=== PATIENT | female | born 1930 | race Caucasian/White ===

== ENCOUNTER 2017-12-16 06:16 | Day surgery (SDC) | payer MEDICARE ==
[2017-12-10 10:13] VITALS: BMI 29.8
[~2017-12-16 06:16] MED LIST: LACTATED RINGERS 1,000 ML IV SCH
[2017-12-16] MEDS ORDERED: SODIUM CHLORIDE 0.9% 1,000 ML IV SCH (06:20)
[2017-12-16 06:49] VITALS: TEMP 99
[2017-12-16 07:14] LABS: Glucose,Whole Blood 89 mg/dL (75-99)
[2017-12-16] MEDS ORDERED: SODIUM CHLORIDE 0.9% 500 ML IV ONE (07:26)
[2017-12-16] MEDS ORDERED: ePHEDrine SULFATE/0.9% NACL/PF 50 MG/5 ML SYRINGE IV ONE (07:31)
[2017-12-16] MEDS ORDERED: PROPOFOL 10 MG/ML 20 ML VIAL IV ONE (07:31)
--- NOTE | 2017-12-16 08:28 | CE ---
CARDIAC ELECTROPHYSIOLOGY REPORT DATE OF SERVICE: 12/16/2017 PROCEDURE: Electrical cardioversion. PERFORMED BY: Dr. Duke Enamorado. INDICATION: Persistent atrial fibrillation. CLINICAL INFORMATION: Mrs. Priscilla Hickey is an 87-year-old lady with hypertension, type 2 diabetes with recent onset but persistent atrial fibrillation who has been adequately anticoagulated. Her rate control was fairly optimal. She was brought in for the procedure electively after explaining the risks, benefits, and options. PROCEDURE NOTE: Under the influence of [id number] intravenous anesthetic agent with the attendance of the anesthesiologist, a single 200 joule synchronized shock was delivered with anterior and posterior patches. Patient converted to sinus rhythm, remained hemodynamically stable and neurologically intact. She will be discharged later on today after she is up and about and has had a meal. This was a successful electrical cardioversion. Results were discussed with the patient and her son. JAYY / MAN: [id number] /
[2017-12-16 10:59] VITALS: PULSE 64; RESP 20
[2017-12-16 11:02] VITALS: BP 123/58
== END 2017-12-16 10:53 | disposition home or self-care (01) ==
LOC: CATHCVL 06:16
PROVIDERS: ATTEND Internal Medicine Interventional Cardiology
DX: I48.1 Persistent atrial fibrillation (principal); I10 Essential (primary) hypertension; E11.9 Type 2 diabetes mellitus without complications; Z79.4 Long term (current) use of insulin; M19.90 Unspecified osteoarthritis, unspecified site; Z79.01 Long term (current) use of anticoagulants; Z79.899 Other long term (current) drug therapy; Z88.1 Allergy status to other antibiotic agents; Z88.3 Allergy status to other anti-infective agents
CPT/HCPCS: 92960; J2704

== ENCOUNTER 2017-12-19 13:32 | Inpatient (IN) | payer MEDICARE ==
[2017-12-19] MEDS ORDERED: SODIUM CHLORIDE 0.9% 1,000 ML IV STA ×2 (13:53)
[2017-12-19] MEDS ORDERED: KETOROLAC 30 MG/ML 1 ML VIAL IVP STA (13:53)
[2017-12-19] MEDS ORDERED: ACETAMINOPHEN IV (For NPO) 1,000 MG in EMPTY BAG 1 BAG IVPB STA (13:53)
[2017-12-19 14:12] LABS: Basophils % (A) 0 %; Eosinophils # (A) 0.1 k/uL (0-0.7); Eosinophils % (A) 1 %; HCT 41.9 % (34.0-46.0); Lymphocytes # (A) 1.6 k/uL (1.0-4.8); Lymphocytes % (A) 12 %; MCHC 33.4 g/dL (31.0-37.0); MCV 89.9 fL (80.0-100.0); Monocytes # (A) 0.6 k/uL (0-1.0); Monocytes % (A) 4 %; Neutrophils # (A) 10.7 k/uL (1.3-7.7); Neutrophils % (A) 82 %; Platelet Count 211 k/uL (150-450); RBC 4.66 m/uL (3.80-5.40); RDW 13.6 % (11.5-15.5); WBC 13.1 k/uL (3.8-10.6)
[2017-12-19 14:21] LABS: ALT 36 U/L (9-52); AST 31 U/L (14-36); Albumin 3.4 g/dL (3.5-5.0); Alkaline Phosphatase 79 U/L (38-126); Anion Gap 12 mmol/L; Blood Urea Nitrogen 17 mg/dL (7-17); Calcium 9.1 mg/dL (8.4-10.2); Carbon Dioxide 24 mmol/L (22-30); Chloride 104 mmol/L (98-107); Glucose 105 mg/dL (74-99); Lipase 32 U/L (23-300); Magnesium 1.9 mg/dL (1.6-2.3); Potassium 4.4 mmol/L (3.5-5.1); Sodium 140 mmol/L (137-145); Total Bilirubin 1.3 mg/dL (0.2-1.3); Total Protein 6.3 g/dL (6.3-8.2)
[2017-12-19 14:24] LABS: Partial Thromboplastin Time 23.3 sec (22.0-30.0); Prothrombin Time 10.2 sec (9.0-12.0)
--- NOTE | 2017-12-19 14:27 | ED ---
Chest Pain HPI - General Chief Complaint: Chest Pain Stated Complaint: revisit Time Seen by Provider: 12/19/17 13:52 Source: patient, RN notes reviewed, old records reviewed Mode of arrival: wheelchair Limitations: no limitations - History of Present Illness Initial Comments: This is an 87-year-old female the ER for evaluation. Patient having multiple complaints currently. Complains of chest pain occasional shortness of breath and generalized not feeling well. Patient states she feels weak tired fatigued , dehydrated. - Related Data Home Medications Medication Instructions Recorded Confirmed Carteolol HCl [Carteolol HCl 1% 1 drop BOTH EYES BID 10/20/15 12/10/17 Ophth] Cholecalciferol [Vitamin D3] 1,000 unit PO DAILY 10/20/15 12/10/17 Insulin Glargine [Lantus] 38 unit SQ DAILY 10/20/15 12/16/17 Latanoprost Ophth [Xalatan 0.005%] 1 drop LEFT EYE HS 10/20/15 12/10/17 Lisinopril [Zestril] 20 mg PO DAILY 10/20/15 12/10/17 Sodium Chloride 5% Ophth Soln 1 drops BOTH EYES DAILY 10/20/15 12/10/17 [Arsenio 128] Apixaban [Eliquis] 2.5 mg PO BID 12/10/17 12/10/17 Furosemide [Lasix] 40 mg PO DAILY PRN 12/10/17 12/16/17 Metoprolol Tartrate 50 mg PO BID 12/10/17 12/10/17 Vision Shield 1 tab PO DAILY 12/10/17 12/10/17 prednisoLONE ACETATE 1% OPHTH 1 drops RIGHT EYE QAM 12/10/17 12/10/17 [Pred Forte 1%] Allergies Allergy/AdvReac Type Severity Reaction Status Date / Time ciprofloxacin Allergy Rash/Hives Verified 12/19/17 13:37 Sulfa (Sulfonamide Allergy Rash/Hives Verified 12/19/17 13:37 Antibiotics) Review of Systems ROS Statement: Those systems with pertinent positive or pertinent negative responses have been documented in the HPI. ROS Other: All systems not noted in ROS Statement are negative. EKG Findings - EKG Comments: EKG Findings:: EKG shows normal sinus rhythm rate of 60, RI 128, QRS 106, QTc 465 Past Medical History Past Medical History: Atrial Fibrillation, Diabetes Mellitus, Hypertension Additional Past Medical History / Comment(s): Fluid retention, diarrhea, hx kidney stones, History of Any Multi-Drug Resistant Organisms: None Reported Past Surgical History: Appendectomy, Cholecystectomy Additional Past Surgical History / Comment(s): Removal of stone from Kidney Past Anesthesia/Blood Transfusion Reactions: No Reported Reaction Past Psychological History: No Psychological Hx Reported Smoking Status: Never smoker Past Alcohol Use History: None Reported Past Drug Use History: None Reported - Past Family History Sister(s) Family Medical History: Cancer Brother(s) Family Medical History: Cancer General Exam Limitations: no limitations General appearance: alert, in no apparent distress Head exam: Present: atraumatic, normocephalic, normal inspection Eye exam: Present: normal appearance, PERRL, EOMI. Absent: scleral icterus, conjunctival injection, periorbital swelling ENT exam: Present: normal exam, mucous membranes moist Neck exam: Present: normal inspection. Absent: tenderness, meningismus, lymphadenopathy Respiratory exam: Present: normal lung sounds bilaterally. Absent: respiratory distress, wheezes, rales, rhonchi, stridor Cardiovascular Exam: Present: regular rate, normal rhythm, normal heart sounds. Absent: systolic murmur, diastolic murmur, rubs, gallop, clicks GI/Abdominal exam: Present: soft, normal bowel sounds. Absent: distended, tenderness, guarding, rebound, rigid Extremities exam: Present: normal inspection, full ROM, normal capillary refill. Absent: tenderness, pedal edema, joint swelling, calf tenderness Back exam: Present: normal inspection Neurological exam: Present: alert, oriented X3, CN II-XII intact Psychiatric exam: Present: normal affect, normal mood Skin exam: Present: warm, dry, intact, normal color. Absent: rash Course Vital Signs 12/19/17 12/19/17 12/19/17 13:34 13:49 14:20 Temperature 100.1 F H 101.2 F H Pulse Rate 67 66 68 Pulse Rate [ 66 Apical] Respiratory 18 18 18 Rate Blood Pressure 180/71 174/77 139/62 O2 Sat by Pulse 96 98 99 Oximetry 12/19/17 14:44 Temperature 97.8 F Pulse Rate Pulse Rate [ Apical] Respiratory Rate Blood Pressure O2 Sat by Pulse Oximetry Disposition Clinical Impression: UTI (urinary tract infection), Fever, Weak Disposition: ADMITTED IP TO THIS HOSP Condition: Good Is patient prescribed a controlled substance at d/c from ED?: No Referrals: Luis Angel Mcknight DO [Primary Care Provider] - 1-2 days
[2017-12-19 14:31] LABS: Creatine Kinase 31 U/L (30-135)
--- NOTE | 2017-12-19 14:39 | XR ---
EXAMINATION TYPE: XR chest 2V DATE OF EXAM: 12/19/2017 COMPARISON: NONE HISTORY: Shortness of breath TECHNIQUE: Frontal and lateral views of the chest are obtained. FINDINGS: Scattered senescent parenchymal changes noted. Hyperinflation compatible with COPD. No evidence for infiltrate. No evidence for atelectasis. Heart size is stable. Mediastinal structures are stable and grossly unremarkable. No evidence for hilar prominence. Degenerative changes dorsal spine. IMPRESSION: 1. No evidence for acute pulmonary disease.
[2017-12-19 14:44] LABS: Creatine Kinase MB 0.4 ng/mL (0.0-2.4); Troponin I <0.012 ng/mL (0.000-0.034)
[2017-12-19 14:51] LABS: Appearance,Urine Cloudy (Clear); Bacteria,Urine Rare /hpf; Bilirubin,Urine Negative (Negative); Blood,Urine Trace (Negative); Color,Urine Yellow; Glucose,Urine (UA) Negative (Negative); Ketones,Urine Negative (Negative); Leukocyte Esterase,Urine Large (Negative); Mucus,Urine Few /hpf; Nitrite,Urine Negative (Negative); Protein,Urine Trace (Negative); RBC,Urine 18 /hpf (0-5); Specific Gravity,Urine 1.019 (1.001-1.035); Squamous Epithelial Cell,Urine 7 /hpf (0-4); WBC,Urine >182 /hpf (0-5)
[2017-12-19] MEDS ORDERED: cefTRIAXone 2,000 MG in SODIUM CHLORIDE 0.9% 100 ML IVPB STA (15:00)
[2017-12-19] MEDS ORDERED: IBUPROFEN 400 MG TAB PO PRN (15:01)
[2017-12-19] MEDS ORDERED: ACETAMINOPHEN TAB 325 MG TAB PO PRN (15:01)
[2017-12-19] MEDS ORDERED: cefTRIAXone IN SWFI 2,000 MG/20 ML SYRINGE IVP STA (15:07)
[2017-12-19 16:13] VITALS: BMI 29.0
[2017-12-19 17:19] LABS: Glucose,Whole Blood 71 mg/dL (75-99)
[2017-12-19] MEDS ORDERED: FUROSEMIDE 40 MG TAB PO PRN (17:22)
[2017-12-19] MEDS: INSULIN ASPART 100 UNIT/ML 1 ML 10 ML VIAL SQ SCH ×2 (17:59→20:49)
[2017-12-19] MEDS: CARTEOLOL 1% BOTH EYES SCH (20:29)
[2017-12-19] MEDS: LATANOPROST 0.005% OPHTH DROPS 2.5 ML BTL LEFT EYE SCH (20:31)
[2017-12-19] MEDS: APIXABAN 2.5 MG TABLET PO SCH (20:34)
[2017-12-19 21:08] LABS: Glucose,Whole Blood 190 mg/dL (75-99)
[2017-12-19] MEDS: METOPROLOL TARTRATE 50 MG TAB PO SCH (22:58)
[2017-12-19 23:49] LABS: Hemoglobin A1C 7.2 % (4.0-6.0)
[2017-12-20] MEDS ORDERED: DEXTROSE 50%-WATER 50 ML SYRINGE IVP ONE (07:15)
[2017-12-20 08:04] LABS: Glucose,Whole Blood 82 mg/dL (75-99)
[2017-12-20 08:04] LABS: Glucose,Whole Blood 61 mg/dL (75-99)
[2017-12-20] MEDS: CARTEOLOL 1% BOTH EYES SCH ×2 (08:15→22:12)
[2017-12-20] MEDS: prednisoLONE ACETATE 1% OPHTH DROPS 5 ML BTL RIGHT EYE SCH (08:15)
[2017-12-20] MEDS: cefTRIAXone IN SWFI 1,000 MG/10 ML SYRINGE IVP SCH (08:51)
[2017-12-20] MEDS: APIXABAN 2.5 MG TABLET PO SCH ×2 (08:51→22:13)
[2017-12-20] MEDS: METOPROLOL TARTRATE 50 MG TAB PO SCH ×2 (08:51→22:13)
[2017-12-20] MEDS: LISINOPRIL 20 MG TAB PO SCH (08:51)
[2017-12-20] MEDS: INSULIN ASPART 100 UNIT/ML 1 ML 10 ML VIAL SQ SCH ×4 (08:52→22:18)
[2017-12-20] MEDS ORDERED: INSULIN DETEMIR 100 UNIT/ML 10 ML VIAL SQ SCH ×2 (09:00→11:12)
[2017-12-20] MEDS ORDERED: CHOLECALCIFEROL 1,000 UNIT TAB PO SCH (09:00)
[2017-12-20 10:40] LABS: Glucose,Whole Blood 148 mg/dL (75-99)
[2017-12-20 12:18] LABS: Glucose,Whole Blood 118 mg/dL (75-99)
[2017-12-20] MEDS: LACTATED RINGERS 1,000 ML IV SCH (13:00)
--- NOTE | 2017-12-20 14:10 | HP ---
HISTORY AND PHYSICAL DATE OF ADMISSION: 12/19/17. DATE OF SERVICE: 12/20/17. PRESENTING COMPLAINT: Weak, tired, nausea. HISTORY OF PRESENTING COMPLAINT: This very pleasant 87-year-old patient of Dr. Mcknight. Chronic stable medical conditions include diabetes, hypertension, atrial fibrillation. The latter of which that had a cardioversion done by Dr. Brody Enamorado. The patient presented 1 day of not feeling well. Nausea, fever, chills, some urinary frequency, decreased appetite, tired, run down. The patient was found to have a fever of 101 in the ER with white count and a sepsis picture and the patient is admitted, started on IV fluids and IV antibiotics for what appeared to be a UTI, felt to be the source of infection. The patient is still feeling tired, run down. Not much of an appetite, nausea. REVIEW OF SYSTEMS: CONSTITUTIONAL: Fever, chills. HEENT: Decreased hearing. RESPIRATORY: None. CARDIOVASCULAR: None. GASTROINTESTINAL: As above. GENITOURINARY: As above. MUSCULOSKELETAL: Arthritic pain in the joints. DERMATOLOGICAL, HEMATOLOGIC, LYMPHATIC: None. PSYCHIATRY: None. NEUROLOGICAL: None. PAST MEDICAL HISTORY: Atrial fibrillation with cardioversion, diabetes, hypertension, osteoarthritis, urine incontinence. PAST SURGICAL HISTORY: Appendectomy, cholecystectomy, removal of stone from kidney. SOCIAL HISTORY: No smoking, no alcohol. Lives with her son. Uses a walker. FAMILY HISTORY: Cancer, type unknown. HOME MEDICATIONS: Prednisone Forte 1% one drop to right eye daily, Vision Shield, sodium chloride 5% 1 drop to both eyes daily, metoprolol 50 mg p.o. b.i.d., Zestril 20 mg p.o. daily, Xalatan 0.005% 1 drop to left eye q.h.s., Lantus 38 units subcu daily, Lasix 40 mg p.o. daily p.r.n., Vitamin D3 1000 units p.o. daily. Carteolol 1% 1 drop to both eyes b.i.d., Eliquis 2.5 p.o. b.i.d. ALLERGIES: To CIPRO AND SULFUR. PHYSICAL EXAMINATION: VITAL SIGNS ON PRESENTATION: Temperature 101.2, pulse 60, respiratory 18, blood pressure 130/67, pulse ox 98% on 2 L. GENERAL APPEARANCE: Sitting up, tired-appearing. EYES: Pupils equal. Conjunctivae normal. HEENT: External appearance of nose and ears normal. Oral cavity normal. NECK: JVD not raised. Mass not palpable. RESPIRATORY: Effort normal. Lungs fair entry. CARDIOVASCULAR: First and second sounds, no edema. ABDOMEN: Soft, nontender. Liver and spleen not palpable. LYMPHATIC: No lymph node palpable in neck or axillae. PSYCHIATRY: Alert and oriented x3. Mood and affect normal. NEUROLOGICAL: Pupils equal. Cranial nerves grossly intact. Power and sensation grossly intact. MUSCULOSKELETAL: Evidence of osteoarthritis especially the hands and knees. INVESTIGATION: White count 13.1, potassium 4.4. UA positive for leukocyte esterase, WBC. Urine culture is pending. ASSESSMENT: 1. Acute urinary tract infection causing sepsis, present on admission. 2. Paroxysmal atrial fibrillation, recent cardioversion for which patient is on Eliquis. 3. Essential hypertension. 4. Diabetes mellitus type 2, chronically on insulin, uncontrolled with hypoglycemia. Sugar did drop down to 71. PLAN: Patient is put on IV ceftriaxone, IV fluids. Patient's sugars are running low, dose of Levemir has been cut back. Other home medications are to be resumed. Care was discussed with the patient. Questions were answered. MMODL / IJN: [id number] /
[2017-12-20 17:09] LABS: Glucose,Whole Blood 102 mg/dL (75-99)
[2017-12-20] MEDS ORDERED: ONDANSETRON 4 MG/2 ML VIAL IVP PRN (17:12)
[2017-12-20] MEDS: SODIUM CHLORIDE 5% OPHTH DROPS 15 ML BTL BOTH EYES SCH (17:16)
[2017-12-20 20:55] LABS: Glucose,Whole Blood 209 mg/dL (75-99)
[2017-12-20 22:11] VITALS: RESP 18
[2017-12-20] MEDS: LATANOPROST 0.005% OPHTH DROPS 2.5 ML BTL LEFT EYE SCH (22:13)
[2017-12-21 02:08] LABS: Glucose,Whole Blood 143 mg/dL (75-99)
[2017-12-21] MEDS: LACTATED RINGERS 1,000 ML IV SCH (06:02)
[2017-12-21 06:20] VITALS: BP 149/63; PULSE 61; TEMP 98.5
[2017-12-21 07:14] LABS: Glucose,Whole Blood 138 mg/dL (75-99)
[2017-12-21] MEDS: prednisoLONE ACETATE 1% OPHTH DROPS 5 ML BTL RIGHT EYE SCH (09:22)
[2017-12-21] MEDS: cefTRIAXone IN SWFI 1,000 MG/10 ML SYRINGE IVP SCH (09:22)
[2017-12-21] MEDS: APIXABAN 2.5 MG TABLET PO SCH (09:22)
[2017-12-21] MEDS: CARTEOLOL 1% BOTH EYES SCH (09:22)
[2017-12-21] MEDS: METOPROLOL TARTRATE 50 MG TAB PO SCH (09:22)
[2017-12-21] MEDS: SODIUM CHLORIDE 5% OPHTH DROPS 15 ML BTL BOTH EYES SCH (09:22)
[2017-12-21] MEDS: INSULIN ASPART 100 UNIT/ML 1 ML 10 ML VIAL SQ SCH ×2 (09:23→13:25)
[2017-12-21] MEDS: LISINOPRIL 20 MG TAB PO SCH (09:23)
[2017-12-21 11:39] LABS: Glucose,Whole Blood 203 mg/dL (75-99)
--- NOTE | 2017-12-21 19:38 | DS ---
DISCHARGE SUMMARY DATE OF ADMISSION: December 19, 2017. DATE OF DISCHARGE: December 21, 2017. FINAL DIAGNOSES: 1. Acute urinary tract infection causing sepsis present on admission. 2. Paroxysmal atrial fibrillation with recent cardioversion for which patient is on Eliquis. 3. Essential hypertension. 4. Diabetes mellitus type 2, chronically on insulin, uncontrolled with hypoglycemia, sugar did drop down to 71. HOSPITAL COURSE: This patient presented weak, tired, run down and nausea. Found to be UTI with sepsis. Responded well to IV antibiotics and IV fluids. At the time of discharge, was really feeling well, keen, afebrile, tolerating a diet. Very keen to go home. EXAM: Lungs are clear. Cardiovascular: 1st and second sounds normal. Care was discussed with the patient. DISCHARGE MEDICATIONS: 1. Carteolol 1% 1 drop to both eyes b.i.d. 2. Lantus 38 units subcu daily. 3. Xalatan 0.005% 1 drop to left eye q.h.s. 4. Zestril 20 mg p.o. daily. 5. 1 drop to both eyes daily. 6. Eliquis 2.5 p.o. b.i.d. 7. Lasix 40 mg p.o. daily. 8. Metoprolol tartrate 50 mg p.o. b.i.d. 9. Vision Shield 1 tablet p.o. daily. 10.Pred Forte 1% 1 drop to right eye in the morning. 11.Ceftin 500 mg p.o. b.i.d. [address] tablets. Follow up with Dr. Mcknight on January 06, 2018. Copy to Dr. Mcknight. MMKIRAL / IJN: [id number] /
== END 2017-12-21 15:07 | disposition home or self-care (01) | DRG 872 ==
LOC: EC 13:32 → 4MS4W 15:01
PROVIDERS: ADMIT Hospitalist; ATTEND Hospitalist
DX: A41.9 Sepsis, unspecified organism (principal); N39.0 Urinary tract infection, site not specified; E11.649 Type 2 diabetes mellitus with hypoglycemia without coma; E86.0 Dehydration; I10 Essential (primary) hypertension; I48.0 Paroxysmal atrial fibrillation; Z79.01 Long term (current) use of anticoagulants; Z79.4 Long term (current) use of insulin; Z79.899 Other long term (current) drug therapy; Z87.442 Personal history of urinary calculi; R32 Unspecified urinary incontinence; M19.90 Unspecified osteoarthritis, unspecified site; Z88.1 Allergy status to other antibiotic agents; Z88.2 Allergy status to sulfonamides
CPT/HCPCS: 36415; 71046; 80053; 81001; 82550; 82553; 83036; 83690; 83735; 83880; 84484; 85025; 85610; 85730; 87086; 93005; 94760; 96361; 96365; 96375; 99285

== ENCOUNTER 2018-12-16 22:51 | Observation (INO) | payer MEDICARE ==
[2018-12-16] MEDS ORDERED: ASPIRIN 81 MG PO STA (23:38)
--- NOTE | 2018-12-16 23:40 | ED ---
General Adult HPI - General Chief complaint: Chest Pain Stated complaint: Dizziness, nausea Time Seen by Provider: 12/16/18 23:32 Source: patient Mode of arrival: wheelchair Limitations: no limitations - History of Present Illness Initial comments: Dictation was produced using [employer] dictation software. please excuse any grammatical, word or spelling errors. Chief Complaint: 88-year-old female presents with chest discomfort. History of Present Illness: is 88-year-old female she has past medical history diabetes hypertension and atrial fibrillation presents with chest discomfort 2 days. She states that while with her chest. She expresses nausea. She describes the chest discomfort as is light squeezing pressure to the substernal area. Denies any numbness or paresthesias to the upper extremities. Patient states she had a cardiac cath last year. She denies any coronary artery stents. Denies any cough, constitutional symptoms. Patient states she still feels light chest pressure. The ROS documented in this emergency department record has been reviewed and confirmed by me. Those systems with pertinent positive or negative responses have been documented in the HPI. All other systems are other negative and/or noncontributory. PHYSICAL EXAM: General Impression: Alert and oriented x3, not in acute distress HEENT: Normocephalic atraumatic, extra-ocular movements intact, pupils equal and reactive to light bilaterally, mucous membranes moist. Cardiovascular: Heart regular rate and rhythm, S1&S2 audible, no murmurs, rubs or gallops Chest: Lungs clear to auscultation bilaterally, no rhonchi, no wheeze, no rales Abdomen: Bowel sounds present, abdomen soft, non-tender, non-distended, no organ omegaly Musculoskeletal: Pulses present and equal in all extremities, no peripheral edema Motor: no focal deficits noted Neurological: CN II-XII grossly intact, no focal motor or sensory deficits noted Skin: Intact with no visualized rashes Psych: Normal affect and mood ED course: 88 y Old female presents with symptoms concerning for acute coronary syndrome. As upon arrival are within acceptable limits. Laboratory evaluation obtained. CBC, coag panel, metabolic panel, cardiac enzymes are negative. Chest x-ray is nonacute pending radiology read. Patient is symptom-free at the moment. Given patient's clinical presentation is concern of acute coronary syndrome. Patient given aspirin. Patient to be admitted observation for suture troponins and cardiology consultation. EKG interpretation: Ventricular rate 62, sinus rhythm,. Interval 160, care is 84, QTC 422. No NE prolongation, no QTC prolongation, no ST or T-wave changes noted. EKG compared to 12/19/2017 showing no changes. Overall, this EKG is unremarkable - Related Data Home Medications Medication Instructions Recorded Confirmed Carteolol HCl [Carteolol HCl 1% 1 drop BOTH EYES BID 10/20/15 12/16/18 Ophth] Insulin Glargine [Lantus] 38 unit SQ DAILY 10/20/15 12/16/18 Latanoprost Ophth [Xalatan 0.005%] 1 drop LEFT EYE HS 10/20/15 12/16/18 Lisinopril [Zestril] 20 mg PO DAILY 10/20/15 12/16/18 Sodium Chloride 5% Ophth Soln 1 drops BOTH EYES DAILY 10/20/15 12/16/18 [Arsenio 128] Apixaban [Eliquis] 2.5 mg PO BID 12/10/17 12/16/18 Furosemide [Lasix] 40 mg PO DAILY PRN 12/10/17 12/16/18 prednisoLONE ACETATE 1% OPHTH 1 drops RIGHT EYE QAM 12/10/17 12/16/18 [Pred Forte 1%] Cholecalciferol [Vitamin D3 (25 1,000 unit PO DAILY 12/16/18 12/16/18 Mcg = 1000 Iu)] Metoprolol Tartrate [Lopressor] 50 mg PO BID 12/16/18 12/16/18 Vit C/E/Zn/Coppr/Lutein/Zeaxan 1 cap PO BID 12/16/18 12/16/18 [Preservision Areds 2 Softgel] Allergies Allergy/AdvReac Type Severity Reaction Status Date / Time ciprofloxacin Allergy Rash/Hives Verified 12/16/18 23:36 potassium [From Potassimin] Allergy Unknown Verified 12/16/18 23:36 Sulfa (Sulfonamide Allergy Rash/Hives Verified 12/16/18 23:36 Antibiotics) Review of Systems ROS Statement: Those systems with pertinent positive or pertinent negative responses have been documented in the HPI. ROS Other: All systems not noted in ROS Statement are negative. Past Medical History Past Medical History: Atrial Fibrillation, Diabetes Mellitus, Hypertension Additional Past Medical History / Comment(s): Fluid retention, diarrhea, hx kidney stones, History of Any Multi-Drug Resistant Organisms: None Reported Past Surgical History: Appendectomy, Cholecystectomy Additional Past Surgical History / Comment(s): Removal of stone from Kidney Past Anesthesia/Blood Transfusion Reactions: No Reported Reaction Past Psychological History: No Psychological Hx Reported Smoking Status: Never smoker Past Alcohol Use History: None Reported Past Drug Use History: None Reported - Past Family History Sister(s) Family Medical History: Cancer Brother(s) Family Medical History: Cancer General Exam Limitations: no limitations Course Vital Signs 12/16/18 12/17/18 23:21 00:25 Temperature 98.0 F 97.9 F Pulse Rate 60 54 L Respiratory 20 18 Rate Blood Pressure 165/66 167/71 O2 Sat by Pulse 97 96 Oximetry Medical Decision Making - Lab Data Result diagrams: 12/16/18 23:45 12/16/18 23:45 Lab Results 12/16/18 12/16/18 12/16/18 Range/Units 23:45 23:45 23:45 WBC 7.0 (3.8-10.6) k/uL RBC 4.71 (3.80-5.40) m/uL Hgb 13.6 (11.4-16.0) gm/dL Hct 43.2 (34.0-46.0) % MCV 91.8 (80.0-100.0) fL MCH 28.9 (25.0-35.0) pg MCHC 31.4 (31.0-37.0) g/dL RDW 13.2 (11.5-15.5) % Plt Count 212 (150-450) k/uL Neutrophils % 59 % Lymphocytes % 31 % Monocytes % 6 % Eosinophils % 2 % Basophils % 0 % Neutrophils # 4.1 (1.3-7.7) k/uL Lymphocytes # 2.2 (1.0-4.8) k/uL Monocytes # 0.4 (0-1.0) k/uL Eosinophils # 0.1 (0-0.7) k/uL Basophils # 0.0 (0-0.2) k/uL PT 9.7 (9.0-12.0) sec INR 0.9 (<1.2) APTT 24.8 (22.0-30.0) sec Sodium 140 (137-145) mmol/L Potassium 4.4 (3.5-5.1) mmol/L Chloride 105 (98-107) mmol/L Carbon Dioxide 30 (22-30) mmol/L Anion Gap 5 mmol/L BUN 17 (7-17) mg/dL Creatinine 0.68 (0.52-1.04) mg/dL Est GFR (CKD-EPI)AfAm >90 (>60 ml/min/1.73 sqM) Est GFR (CKD-EPI)NonAf 79 (>60 ml/min/1.73 sqM) Glucose 165 H (74-99) mg/dL Calcium 9.5 (8.4-10.2) mg/dL Magnesium 2.1 (1.6-2.3) mg/dL Total Bilirubin 0.5 (0.2-1.3) mg/dL AST 22 (14-36) U/L ALT 15 (9-52) U/L Alkaline Phosphatase 87 (38-126) U/L Troponin I (0.000-0.034) ng/mL Total Protein 6.6 (6.3-8.2) g/dL Albumin 3.7 (3.5-5.0) g/dL 12/16/18 Range/Units 23:45 WBC (3.8-10.6) k/uL RBC (3.80-5.40) m/uL Hgb (11.4-16.0) gm/dL Hct (34.0-46.0) % MCV (80.0-100.0) fL MCH (25.0-35.0) pg MCHC (31.0-37.0) g/dL RDW (11.5-15.5) % Plt Count (150-450) k/uL Neutrophils % % Lymphocytes % % Monocytes % % Eosinophils % % Basophils % % Neutrophils # (1.3-7.7) k/uL Lymphocytes # (1.0-4.8) k/uL Monocytes # (0-1.0) k/uL Eosinophils # (0-0.7) k/uL Basophils # (0-0.2) k/uL PT (9.0-12.0) sec INR (<1.2) APTT (22.0-30.0) sec Sodium (137-145) mmol/L Potassium (3.5-5.1) mmol/L Chloride (98-107) mmol/L Carbon Dioxide (22-30) mmol/L Anion Gap mmol/L BUN (7-17) mg/dL Creatinine (0.52-1.04) mg/dL Est GFR (CKD-EPI)AfAm (>60 ml/min/1.73 sqM) Est GFR (CKD-EPI)NonAf (>60 ml/min/1.73 sqM) Glucose (74-99) mg/dL Calcium (8.4-10.2) mg/dL Magnesium (1.6-2.3) mg/dL Total Bilirubin (0.2-1.3) mg/dL AST (14-36) U/L ALT (9-52) U/L Alkaline Phosphatase (38-126) U/L Troponin I <0.012 (0.000-0.034) ng/mL Total Protein (6.3-8.2) g/dL Albumin (3.5-5.0) g/dL Disposition Clinical Impression: Chest pain Disposition: ADMITTED IP TO THIS [facility] Condition: Fair Referrals: Luis Angel Mcknight DO [Primary Care Provider] - 1-2 days Decision Time: 00:57
[2018-12-17 00:07] LABS: Basophils % (A) 0 %; Eosinophils # (A) 0.1 k/uL (0-0.7); Eosinophils % (A) 2 %; HCT 43.2 % (34.0-46.0); HGB 13.6 gm/dL (11.4-16.0); Lymphocytes # (A) 2.2 k/uL (1.0-4.8); Lymphocytes % (A) 31 %; MCH 28.9 pg (25.0-35.0); MCHC 31.4 g/dL (31.0-37.0); MCV 91.8 fL (80.0-100.0); Monocytes # (A) 0.4 k/uL (0-1.0); Monocytes % (A) 6 %; Neutrophils # (A) 4.1 k/uL (1.3-7.7); Neutrophils % (A) 59 %; Platelet Count 212 k/uL (150-450); RBC 4.71 m/uL (3.80-5.40); RDW 13.2 % (11.5-15.5)
[2018-12-17 00:19] LABS: ALT 15 U/L (9-52); AST 22 U/L (14-36); Albumin 3.7 g/dL (3.5-5.0); Alkaline Phosphatase 87 U/L (38-126); Anion Gap 5 mmol/L; Blood Urea Nitrogen 17 mg/dL (7-17); Calcium 9.5 mg/dL (8.4-10.2); Carbon Dioxide 30 mmol/L (22-30); Chloride 105 mmol/L (98-107); Glucose 165 mg/dL (74-99); Magnesium 2.1 mg/dL (1.6-2.3); Potassium 4.4 mmol/L (3.5-5.1); Sodium 140 mmol/L (137-145); Total Bilirubin 0.5 mg/dL (0.2-1.3); Total Protein 6.6 g/dL (6.3-8.2)
[2018-12-17 00:20] LABS: INR 0.9 (<1.2); Partial Thromboplastin Time 24.8 sec (22.0-30.0); Prothrombin Time 9.7 sec (9.0-12.0)
[2018-12-17] MEDS ORDERED: NITROGLYCERIN SL TABS 0.4 MG TAB SUBLINGUAL PRN (00:57)
--- NOTE | 2018-12-17 00:58 | XR ---
EXAM: XR Chest, 2 Views CLINICAL HISTORY: ITS.REASON XR Reason: Chest Pain TECHNIQUE: Frontal and lateral views of the chest. COMPARISON: Chest x-ray 12/19/2017 FINDINGS: Lungs: No focal pulmonary infiltrates or consolidations. Pleural space: No evidence of pleural effusion or pneumothorax. Heart: Heart size is mildly enlarged. Mediastinum: Mediastinal structures are unremarkable. Bones/joints: Degenerative changes involve mid-lower thoracic spine. Vasculature: Elongated thoracic aorta with atherosclerotic calcification, unchanged. IMPRESSION: Mild cardiomegaly. No evidence of acute cardiopulmonary disease.
[2018-12-17] MEDS ORDERED: FUROSEMIDE 40 MG TAB PO PRN (06:57)
[2018-12-17 07:03] LABS: Glucose,Whole Blood 143 mg/dL (75-99)
--- NOTE | 2018-12-17 07:53 | P.CRDCN ---
History of Present Illness Consult date: 12/17/18 Chief complaint: Chest discomfort History of present illness: This is a pleasant 88-year-old female patient who sees Dr. Enamorado in the office on regular basis with a past medical history significant for diabetes, hypertension, dyslipidemia, and history of paroxysmal atrial fibrillation, presented to the hospital complaining of chest discomfort. She stated that she was in her usual state of health until about yesterday when she was at home and started experiencing discomfort in the mid of the chest, as a pressure on the chest, without any radiation to the arm or neck or shoulders, and without any associated symptoms of shortness of breath, sweating, dizziness, heart racing, or syncope. The patient stated that she did have a cardiac procedure last year but she is not sure what kind of cardiac procedure. I am contacting the office to obtain a copy of the previous medical records including the last heart catheterization, stress test, and echocardiogram. The patient at this point remained chest pain-free. When I examined her this morning, she is tachycardic and she is in atrial fibrillation with RVR. I am going to give the patient her dose of metoprolol hopefully we can convert her to normal sinus mechanism. If not she will be started on Cardizem drip and admitted to the hospital. The EKG showed sinus rhythm without any ischemic ST or T-wave abnormalities. 3 sets of cardiac enzymes were checked and came in to be unremarkable. The chest x-ray did not show any acute abnormalities. The patient is not aware of any prior diagnosis of coronary artery disease according to her or coronary revascularization. Past Medical History Past Medical History: Atrial Fibrillation, Diabetes Mellitus, Eye Disorder, Hypertension Additional Past Medical History / Comment(s): Fluid retention, diarrhea, hx kidney stones, pt. 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 that is currently being treated History of Any Multi-Drug Resistant Organisms: None Reported Past Surgical History: Appendectomy, Cholecystectomy Additional Past Surgical History / Comment(s): Removal of stone from Kidney Past Anesthesia/Blood Transfusion Reactions: No Reported Reaction Past Psychological History: No Psychological Hx Reported Smoking Status: Never smoker Past Alcohol Use History: None Reported Past Drug Use History: None Reported - Past Family History Sister(s) Family Medical History: Cancer Brother(s) Family Medical History: Cancer Additional Family Medical History / Comment(s): pts three brothers all from pancreatic cancer Father Family Medical History: Diabetes Mellitus Mother Family Medical History: Eye Disorder Additional Family Medical History / Comment(s): pt. reports her mother had macular degeneration as well Medications and Allergies Home Medications Medication Instructions Recorded Confirmed Type Carteolol HCl [Carteolol HCl 1% 1 drop BOTH EYES BID 10/20/15 12/16/18 History Ophth] Insulin Glargine [Lantus] 38 unit SQ DAILY 10/20/15 12/16/18 History Latanoprost Ophth [Xalatan 0.005%] 1 drop LEFT EYE HS 10/20/15 12/16/18 History Lisinopril [Zestril] 20 mg PO DAILY 10/20/15 12/16/18 History Sodium Chloride 5% Ophth Soln 1 drops BOTH EYES DAILY 10/20/15 12/16/18 History [Arsenio 128] Apixaban [Eliquis] 2.5 mg PO BID 12/10/17 12/16/18 History Furosemide [Lasix] 40 mg PO DAILY PRN 12/10/17 12/16/18 History prednisoLONE ACETATE 1% OPHTH 1 drops RIGHT EYE QAM 12/10/17 12/16/18 History [Pred Forte 1%] Cholecalciferol [Vitamin D3 (25 1,000 unit PO DAILY 12/16/18 12/16/18 History Mcg = 1000 Iu)] Metoprolol Tartrate [Lopressor] 50 mg PO BID 12/16/18 12/16/18 History Vit C/E/Zn/Coppr/Lutein/Zeaxan 1 cap PO BID 12/16/18 12/16/18 History [Preservision Areds 2 Softgel] Allergies Allergy/AdvReac Type Severity Reaction Status Date / Time ciprofloxacin Allergy Rash/Hives Verified 12/16/18 23:36 potassium [From Potassimin] Allergy Unknown Verified 12/16/18 23:36 Sulfa (Sulfonamide Allergy Rash/Hives Verified 12/16/18 23:36 Antibiotics) Physical Exam Vitals: Vital Signs Temp Pulse Pulse Resp BP BP Pulse Ox 12/17/18 03:36 97.7 F 51 L 16 168/69 99 12/17/18 03:00 56 L 16 12/17/18 02:48 56 L 18 156/67 98 12/17/18 02:00 98.1 F 55 L 17 173/64 97 12/17/18 01:30 53 L 12 166/69 97 12/17/18 01:00 55 L 12 163/69 96 12/17/18 00:30 53 L 14 169/69 97 12/17/18 00:25 97.9 F 54 L 18 167/71 96 12/17/18 00:00 56 L 12 171/63 12/16/18 23:49 58 L 17 12/16/18 23:21 98.0 F 60 20 165/66 97 Intake and Output 12/16/18 12/17/18 12/17/18 22:59 06:59 14:59 Intake Total 130 Balance 130 Intake: IV 10 0.9 10 Oral 120 Other: Voiding Method Toilet # Voids 1 Weight 77.111 kg - Constitutional General appearance: no acute distress - Respiratory Respiratory: bilateral: CTA - Cardiovascular Rhythm: irregularly irregular Heart sounds: normal: S1, S2 Abnormal Heart Sounds: systolic murmur Results 12/16/18 23:45 12/16/18 23:45 Cardiac Enzymes 12/16/18 12/16/18 12/17/18 Range/Units 23:45 23:45 05:26 AST 22 (14-36) U/L Troponin I <0.012 <0.012 (0.000-0.034) ng/mL Coagulation 12/16/18 Range/Units 23:45 PT 9.7 (9.0-12.0) sec APTT 24.8 (22.0-30.0) sec CBC 12/16/18 Range/Units 23:45 WBC 7.0 (3.8-10.6) k/uL RBC 4.71 (3.80-5.40) m/uL Hgb 13.6 (11.4-16.0) gm/dL Hct 43.2 (34.0-46.0) % Plt Count 212 (150-450) k/uL Comprehensive Metabolic Panel 12/16/18 Range/Units 23:45 Sodium 140 (137-145) mmol/L Potassium 4.4 (3.5-5.1) mmol/L Chloride 105 (98-107) mmol/L Carbon Dioxide 30 (22-30) mmol/L BUN 17 (7-17) mg/dL Creatinine 0.68 (0.52-1.04) mg/dL Glucose 165 H (74-99) mg/dL Calcium 9.5 (8.4-10.2) mg/dL AST 22 (14-36) U/L ALT 15 (9-52) U/L Alkaline Phosphatase 87 (38-126) U/L Total Protein 6.6 (6.3-8.2) g/dL Albumin 3.7 (3.5-5.0) g/dL Current Medications Generic Name Dose Route Start Last Admin Trade Name Freq PRN Reason Stop Dose Admin Apixaban 2.5 mg 12/17/18 09:00 Eliquis PO BID [facility] Aspirin 325 mg 12/18/18 09:00 Aspirin PO DAILY [facility] Carteolol HCl 1 drops 12/17/18 09:00 Ocupress Ophth Soln BOTH EYES BID [facility] Cholecalciferol 1,000 unit 12/17/18 12:00 Vitamin D3 (25 Mcg = 1000 Iu) PO DAILY [facility] Furosemide 40 mg 12/17/18 06:57 Lasix PO DAILY PRN Edema Insulin Detemir 38 unit 12/17/18 09:00 Levemir SQ DAILY [facility] Latanoprost 1 drops 12/17/18 21:00 Xalatan 0.005% LEFT EYE HS [facility] Lisinopril 20 mg 12/17/18 09:00 Zestril PO DAILY [facility] Metoprolol Tartrate 50 mg 12/17/18 09:00 12/17/18 07:29 Lopressor PO 50 mg BID [facility] Administration Multivitamins/Minerals 1 each 12/17/18 09:00 Ivite PO BID [facility] Nitroglycerin 0.4 mg 12/17/18 00:57 12/17/18 02:23 Nitrostat SUBLINGUAL 0.4 mg Q5M PRN Administration Chest Pain Prednisolone Acetate 1 drops 12/17/18 09:00 Pred Forte 1% RIGHT EYE QAM [facility] Sodium Chloride 1 drops 12/17/18 09:00 Arsenio 128 BOTH EYES DAILY [facility] Intake and Output 12/16/18 12/17/18 12/17/18 22:59 06:59 14:59 Intake Total 130 Balance 130 Intake: IV 10 0.9 10 Oral 120 Other: Voiding Method Toilet # Voids 1 Weight 77.111 kg 12/16/18 23:45 12/16/18 23:45 Assessment and Plan Assessment: Assessment #1 atypical chest discomfort #2 paroxysmal atrial fibrillation #3 multiple comorbid conditions including diabetes, hypertension, dyslipidemia Plan #1 the patient was ruled out for acute coronary syndrome. The troponin came in to be unremarkable. The EKG showed no ischemic ST or T-wave abnormalities #2 she just went into atrial fibrillation with RVR. We will give the patient her metoprolol dose in the morning. Possibly start the patient on Cardizem drip. She is already on oral anticoagulation #3 obtain a copy of the previous medical records from the office including the last stress test, heart cath, and echocardiogram #4 follow-up with the patient Thank you for allowing us participate in her care.
[2018-12-17 08:04] VITALS: TEMP 97.9
[2018-12-17] MEDS ORDERED: METOPROLOL TARTRATE 50 MG TAB PO SCH (09:00)
[2018-12-17] MEDS ORDERED: CARTEOLOL 1% BOTH EYES SCH (09:00)
[2018-12-17] MEDS ORDERED: APIXABAN 2.5 MG TABLET PO SCH (09:00)
[2018-12-17] MEDS ORDERED: prednisoLONE ACETATE 1% OPHTH DROPS 5 ML BTL RIGHT EYE SCH (09:00)
[2018-12-17] MEDS ORDERED: INSULIN DETEMIR (LEVEMIR) 100 UNIT/ML SYR SQ SCH (09:00)
[2018-12-17] MEDS ORDERED: SODIUM CHLORIDE 5% OPHTH DROPS 15 ML BTL BOTH EYES SCH (09:00)
[2018-12-17] MEDS ORDERED: VIT A,C & E-LUTEIN-MINERALS 1 EACH TAB PO SCH (09:00)
[2018-12-17] MEDS ORDERED: LISINOPRIL 20 MG TAB PO SCH (09:00)
[2018-12-17 11:04] VITALS: BP 154/76; PULSE 80; RESP 16
[2018-12-17] MEDS ORDERED: CHOLECALCIFEROL 1,000 UNIT TAB PO SCH (12:00)
[2018-12-17 12:03] LABS: Glucose,Whole Blood 198 mg/dL (75-99)
[2018-12-17] MEDS ORDERED: ISOSORBIDE MONONITRATE ER 15 MG TAB PO SCH (13:30)
[2018-12-17] MEDS ORDERED: METOPROLOL TARTRATE 50 MG TAB PO STA (13:52)
[2018-12-17 15:34] LABS: Glucose,Whole Blood 180 mg/dL (75-99)
--- NOTE | 2018-12-17 18:54 | HP ---
HISTORY AND PHYSICAL HISTORY AND PHYSICAL AND DISCHARGE SUMMARY: DATE OF ADMISSION: 12/17/2018 DATE OF DISCHARGE: 12/17/2018 PRESENTING COMPLAINT: Chest pressure. HISTORY OF PRESENTING COMPLAINT: This is a very pleasant 88-year-old patient who follows with Dr. Mcknight. Chronic stable medical conditions include paroxysmal atrial fibrillation, diabetes mellitus, type 2, hypertension, kidney stone. Patient presented feeling unwell. Patient on the day prior to presentation having episodes of chest pressure on and off, and it became more constant yesterday. Patient had been feeling tired. No shortness of breath. No lightheadedness. Just tired and rundown. Hence she was admitted for the same. There was no radiation to the neck or the arm. Patient was found to be in atrial fibrillation and then earlier today patient reverted to sinus rhythm. Heart rate had gone up to 120s to 130s. Patient has not had prior coronary artery disease documented. Cardiology was consulted for the same. REVIEW OF SYSTEMS: CONSTITUTIONAL: Tired. HEENT: None. RESPIRATORY: As above. CARDIOVASCULAR: As above. GASTROINTESTINAL: None. GENITOURINARY: None. MUSCULOSKELETAL: Some pain in the joints. DERMATOLOGICAL: None. HEMATOLOGICAL: None. LYMPHATICS: None. PSYCHIATRY: None. NEUROLOGICAL: None. PAST MEDICAL HISTORY: 1. Atrial fibrillation, paroxysmal. 2. Diabetes. 3. Hypertension. 4. Kidney stones. 5. Macular degeneration of the right eye. PAST SURGICAL HISTORY: 1. Removal of stone from the kidney. 2. Cholecystectomy. 3. Appendectomy. SOCIAL HISTORY: No smoking. No alcohol. Lives with her son. Does use a walker to get about. FAMILY HISTORY: Three brothers all had pancreatic cancer. HOME MEDICATIONS: 1. Lopressor 50 mg b.i.d. 2. Eliquis 2.5 b.i.d. 3. Carteolol 1% one drop to both eyes b.i.d. 4. Vitamin D3 1000 units p.o. daily. 5. Lasix 40 mg p.o. daily p.r.n. 6. Lantus 38 units subcutaneously daily. 7. Xalatan 0.005% one drop to left eye at bedtime. 8. Zestril 20 mg p.o. daily. 9. Arsenio 128 one drop both eyes daily. 10.PreserVision Areds 2 soft gel 1 capsule p.o. b.i.d. 11.Pred Forte 1% one drop to right eye in the morning. ALLERGIES: 1. CIPRO. 2. POTASSIUM. 3. SULFA. PHYSICAL EXAMINATION: VITAL SIGNS ON PRESENTATION: Temperature 98, pulse 60, respiration 20, blood pressure 165/56, pulse ox 97% on room air. Heart rate did go up to 120s. GENERAL APPEARANCE: Average build. Sitting up, not in distress. EYES: Pupils equal. Conjunctivae normal. HEENT: External appearance of nose and ears normal. Oral cavity normal. NECK: JVD not raised. Mass not palpable. RESPIRATORY: Effort normal. LUNGS: Fair air entry. CARDIOVASCULAR: Heart sounds irregular. No edema. ABDOMEN: Soft, nontender. Liver and spleen not palpable. LYMPHATIC: No lymph node palpable in neck or axillae. PSYCHIATRY: Alert and oriented x3. Mood and affect normal. NEUROLOGICAL: Pupils equal. Cranial nerves grossly intact. Power and sensation grossly intact. MUSCULOSKELETAL: Evidence of osteoarthritis. INVESTIGATIONS: White count 7, hemoglobin 13.6, potassium 4.4. BUN and creatinine normal. Troponin x3 negative. EKG tracing, personally reviewed by me, shows normal sinus rhythm. Telemetry did show atrial fibrillation earlier today with rate up to 120. Chest x-ray film, personally reviewed by me, shows some unfolding of the aorta; lung linton otherwise clear. ASSESSMENT: 1. Paroxysmal atrial fibrillation with episodes of rapid ventricular rate, possibly causing angina. 2. Essential hypertension. 3. Diabetes mellitus, type 2, chronically on insulin. PLAN: Cardiology was consulted. Patient's troponins are negative. I discussed with Brenda from Cardiology. The plan is to increase patient's Lopressor to 50 mg 3 times a day, give her an extra dose this afternoon, and hold off any nitrates for right now. Then she can follow up in the office for the same. Care was discussed with the patient. Questions were answered. DISCHARGE MEDICATIONS: Same as home medications, except Lopressor dose has been increased to 50 mg t.i.d. and Nitrostat 0.4 sublingually q.5 p.r.n. Follow up with Dr. Brody Enamorado in 2 weeks. Follow up with Dr. Mcknight in 3 weeks. This is a both a history and physical and a discharge summary. MMODL / IJN: [id number] /
--- NOTE | 2018-12-17 20:39 | DS ---
DISCHARGE SUMMARY DATE OF ADMISSION: 12/17/2018 DATE OF DISCHARGE: 12/17/2018 Please refer to my H&P for both history and physical and discharge summary on this patient. MMODL / IJN: [id number] /
[2018-12-17] MEDS ORDERED: LATANOPROST 0.005% OPHTH DROPS 2.5 ML BTL LEFT EYE SCH (21:00)
[2018-12-18] MEDS ORDERED: ASPIRIN 81 MG PO SCH (09:00)
[2018-12-18] MEDS ORDERED: ASPIRIN 325 MG TAB PO SCH (09:00)
== END 2018-12-17 15:52 | disposition home or self-care (01) ==
LOC: EC 22:51 → 1SOBS 12-17 00:57
PROVIDERS: ADMIT Hospitalist; ATTEND Hospitalist
DX: I48.0 Paroxysmal atrial fibrillation (principal); E11.9 Type 2 diabetes mellitus without complications; E78.5 Hyperlipidemia, unspecified; I10 Essential (primary) hypertension; R11.0 Nausea; H35.30 Unspecified macular degeneration; Z79.4 Long term (current) use of insulin; Z79.899 Other long term (current) drug therapy; Z79.01 Long term (current) use of anticoagulants; Z88.8 Allergy status to other drugs, medicaments and biological substances; Z88.2 Allergy status to sulfonamides; Z88.1 Allergy status to other antibiotic agents; Z87.442 Personal history of urinary calculi; Z90.49 Acquired absence of other specified parts of digestive tract; Z80.9 Family history of malignant neoplasm, unspecified; Z80.0 Family history of malignant neoplasm of digestive organs
CPT/HCPCS: 99285; 36415; 93005; 80053; 83735; 84484 ×2; 85025; 85610; 85730; 71046; G0378

== ENCOUNTER 2019-05-12 12:55 | Emergency (ER) | payer MEDICARE ==
[2019-05-12] MEDS ORDERED: SODIUM CHLORIDE 0.9% 500 ML 500 ML IV STA (13:21)
--- NOTE | 2019-05-12 13:24 | ED ---
General Adult HPI - General Chief complaint: Weakness Stated complaint: Not feeling well Time Seen by Provider: 05/12/19 13:00 Source: patient, RN notes reviewed Mode of arrival: ambulatory Limitations: no limitations - History of Present Illness Initial comments: This is an 88-year-old female who presents emergency Department complaining that she just doesn't feel well. Patient states she feels weak all over and she has been getting tingly feeling in her hands and legs. Patient denies any chest pain palpitations difficulty breathing. Patient denies any nausea vomiting diarrhea. Patient denies any headache patient denies numbness weakness. Suresh jones denies any lightheadedness or dizziness. Patient denies any abdominal pain patient denies any recent fever chills or cough. Patient states she just doesn't feel well all over started earlier today. Patient thinks it might have something to do with taking her metoprolol though she's been on it for quite a while. - Related Data Home Medications Medication Instructions Recorded Confirmed Carteolol HCl [Carteolol HCl 1% 1 drop BOTH EYES BID 10/20/15 05/12/19 Ophth] Insulin Glargine [Lantus] 38 unit SQ DAILY 10/20/15 05/12/19 Latanoprost Ophth [Xalatan 0.005%] 1 drop LEFT EYE HS 10/20/15 05/12/19 Lisinopril [Zestril] 20 mg PO DAILY 10/20/15 05/12/19 Apixaban [Eliquis] 2.5 mg PO TID@0700,1100,1800 12/10/17 05/12/19 Furosemide [Lasix] 40 mg PO DAILY PRN 12/10/17 05/12/19 prednisoLONE ACETATE 1% OPHTH 1 drops RIGHT EYE QAM 12/10/17 05/12/19 [Pred Forte 1%] Cholecalciferol [Vitamin D3 (25 1,000 unit PO DAILY 12/16/18 05/12/19 Mcg = 1000 Iu)] Vit C/E/Zn/Coppr/Lutein/Zeaxan 1 cap PO BID 12/16/18 05/12/19 [Preservision Areds 2 Softgel] Previous Rx's Medication Instructions Recorded Metoprolol Tartrate [Lopressor] 50 mg PO TID #90 tab 12/17/18 Nitroglycerin Sl Tabs [Nitrostat] 0.4 mg SUBLINGUAL Q5M PRN #25 tab 12/17/18 Nitrofurantoin Monohyd/M-Cryst 100 mg PO Q12HR #14 cap 05/12/19 [Macrobid] Allergies Allergy/AdvReac Type Severity Reaction Status Date / Time ciprofloxacin Allergy Rash/Hives Verified 05/12/19 14:11 potassium [From Potassimin] Allergy Unknown Verified 05/12/19 14:11 Sulfa (Sulfonamide Allergy Rash/Hives Verified 05/12/19 14:11 Antibiotics) Review of Systems ROS Statement: Those systems with pertinent positive or pertinent negative responses have been documented in the HPI. ROS Other: All systems not noted in ROS Statement are negative. Past Medical History Past Medical History: Atrial Fibrillation, Diabetes Mellitus, Eye Disorder, Hypertension Additional Past Medical History / Comment(s): Fluid retention, diarrhea, hx kidney stones, pt. 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 that is currently being treated History of Any Multi-Drug Resistant Organisms: None Reported Past Surgical History: Appendectomy, Cholecystectomy Additional Past Surgical History / Comment(s): Removal of stone from Kidney Past Anesthesia/Blood Transfusion Reactions: No Reported Reaction Past Psychological History: No Psychological Hx Reported Smoking Status: Never smoker Past Alcohol Use History: None Reported Past Drug Use History: None Reported - Past Family History Sister(s) Family Medical History: Cancer Brother(s) Family Medical History: Cancer Additional Family Medical History / Comment(s): pts three brothers all from pancreatic cancer Father Family Medical History: Diabetes Mellitus Mother Family Medical History: Eye Disorder Additional Family Medical History / Comment(s): pt. reports her mother had macular degeneration as well General Exam - General Exam Comments Initial Comments: GENERAL: Patient is well-developed and well-nourished. Patient is nontoxic and well-hydrated and is in mild distress. ENT: Neck is soft and supple. No significant lymphadenopathy is noted. Oropharynx is clear. Moist mucous membranes. Neck has full range of motion without eliciting any pain. EYES: The sclera were anicteric and conjunctiva were pink and moist. Extraocular movements were intact and pupils were equal round and reactive to light. Eyelids were unremarkable. PULMONARY: Unlabored respirations. Good breath sounds bilaterally. No audible rales rhonchi or wheezing was noted. CARDIOVASCULAR: There is a regular rate and rhythm without any murmurs gallops or rubs. ABDOMEN: Soft and nontender with normal bowel sounds. No palpable organomegaly was noted. There is no palpable pulsatile mass. SKIN: Skin is clear with no lesions or rashes and otherwise unremarkable. NEUROLOGIC: Patient is alert and oriented x3. Cranial nerves II through XII are grossly intact. Motor and sensory are also intact. Normal speech, volume and content. Symmetrical smile. MUSCULOSKELETAL: Normal extremities with adequate strength and full range of motion. No lower extremity swelling or edema. No calf tenderness. LYMPHATICS: No significant lymphadenopathy is noted PSYCHIATRIC: Normal psychiatric evaluation. Limitations: no limitations Course Vital Signs 05/12/19 05/12/19 13:04 15:09 Temperature 97.9 F Pulse Rate 58 L 56 L Respiratory 20 18 Rate Blood Pressure 194/67 168/80 O2 Sat by Pulse 99 99 Oximetry Medical Decision Making - Medical Decision Making EKG shows sinus bradycardia 57 bpm MT interval is 150 QRS is 78 QT interval 446 QTC is 434. Patient's EKG shows no ST segment elevation or depression or T wave abnormalities are noted Patient received Rocephin in the emergency department because of the high white count and the urine. I went back into the room and reevaluate the patient patient states she's not having the tingling in the extremities that she was earlier. Patient felt couple: Home and following up with primary medical care doctor. - Lab Data Result diagrams: 05/12/19 13:37 05/12/19 13:37 Lab Results 05/12/19 05/12/19 05/12/19 Range/Units 13:37 13:37 13:37 WBC 8.3 (3.8-10.6) k/uL RBC 4.72 (3.80-5.40) m/uL Hgb 14.6 (11.4-16.0) gm/dL Hct 42.9 (34.0-46.0) % MCV 91.0 (80.0-100.0) fL MCH 30.9 (25.0-35.0) pg MCHC 33.9 (31.0-37.0) g/dL RDW 12.9 (11.5-15.5) % Plt Count 260 (150-450) k/uL Neutrophils % 69 % Lymphocytes % 22 % Monocytes % 4 % Eosinophils % 2 % Basophils % 2 % Neutrophils # 5.7 (1.3-7.7) k/uL Lymphocytes # 1.9 (1.0-4.8) k/uL Monocytes # 0.3 (0-1.0) k/uL Eosinophils # 0.2 (0-0.7) k/uL Basophils # 0.1 (0-0.2) k/uL PT (9.0-12.0) sec INR (<1.2) APTT (22.0-30.0) sec Sodium 140 (137-145) mmol/L Potassium 4.1 (3.5-5.1) mmol/L Chloride 106 (98-107) mmol/L Carbon Dioxide 29 (22-30) mmol/L Anion Gap 5 mmol/L BUN 14 (7-17) mg/dL Creatinine 0.62 (0.52-1.04) mg/dL Est GFR (CKD-EPI)AfAm >90 (>60 ml/min/1.73 sqM) Est GFR (CKD-EPI)NonAf 82 (>60 ml/min/1.73 sqM) Glucose 59 L (74-99) mg/dL POC Glucose (mg/dL) (75-99) mg/dL POC Glu Aircraft Engine Mechanic Supervisor ID Plasma Lactic Acid Gaurav 0.9 (0.7-2.0) mmol/L Calcium 9.5 (8.4-10.2) mg/dL Magnesium 2.1 (1.6-2.3) mg/dL Total Bilirubin 0.4 (0.2-1.3) mg/dL AST 25 (14-36) U/L ALT 19 (9-52) U/L Alkaline Phosphatase 82 (38-126) U/L Troponin I (0.000-0.034) ng/mL Total Protein 7.1 (6.3-8.2) g/dL Albumin 3.9 (3.5-5.0) g/dL Urine Color Urine Appearance (Clear) Urine pH (5.0-8.0) Ur Specific Dixon (1.001-1.035) Urine Protein (Negative) Urine Glucose (UA) (Negative) Urine Ketones (Negative) Urine Blood (Negative) Urine Nitrite (Negative) Urine Bilirubin (Negative) Urine Urobilinogen (<2.0) mg/dL Ur Leukocyte Esterase (Negative) Urine RBC (0-5) /hpf Urine WBC (0-5) /hpf Ur Squamous Epith Cells (0-4) /hpf Urine Bacteria (None) /hpf 05/12/19 05/12/19 05/12/19 Range/Units 13:37 13:37 14:28 WBC (3.8-10.6) k/uL RBC (3.80-5.40) m/uL Hgb (11.4-16.0) gm/dL Hct (34.0-46.0) % MCV (80.0-100.0) fL MCH (25.0-35.0) pg MCHC (31.0-37.0) g/dL RDW (11.5-15.5) % Plt Count (150-450) k/uL Neutrophils % % Lymphocytes % % Monocytes % % Eosinophils % % Basophils % % Neutrophils # (1.3-7.7) k/uL Lymphocytes # (1.0-4.8) k/uL Monocytes # (0-1.0) k/uL Eosinophils # (0-0.7) k/uL Basophils # (0-0.2) k/uL PT 9.5 (9.0-12.0) sec INR 0.9 (<1.2) APTT 24.9 (22.0-30.0) sec Sodium (137-145) mmol/L Potassium (3.5-5.1) mmol/L Chloride (98-107) mmol/L Carbon Dioxide (22-30) mmol/L Anion Gap mmol/L BUN (7-17) mg/dL Creatinine (0.52-1.04) mg/dL Est GFR (CKD-EPI)AfAm (>60 ml/min/1.73 sqM) Est GFR (CKD-EPI)NonAf (>60 ml/min/1.73 sqM) Glucose (74-99) mg/dL POC Glucose (mg/dL) (75-99) mg/dL POC Glu Aircraft Engine Mechanic Supervisor ID Plasma Lactic Acid Gaurav (0.7-2.0) mmol/L Calcium (8.4-10.2) mg/dL Magnesium (1.6-2.3) mg/dL Total Bilirubin (0.2-1.3) mg/dL AST (14-36) U/L ALT (9-52) U/L Alkaline Phosphatase (38-126) U/L Troponin I <0.012 (0.000-0.034) ng/mL Total Protein (6.3-8.2) g/dL Albumin (3.5-5.0) g/dL Urine Color Light Yellow Urine Appearance Clear (Clear) Urine pH 8.0 (5.0-8.0) Ur Specific Dixon 1.009 (1.001-1.035) Urine Protein Negative (Negative) Urine Glucose (UA) Negative (Negative) Urine Ketones Negative (Negative) Urine Blood Negative (Negative) Urine Nitrite Negative (Negative) Urine Bilirubin Negative (Negative) Urine Urobilinogen <2.0 (<2.0) mg/dL Ur Leukocyte Esterase Large H (Negative) Urine RBC 2 (0-5) /hpf Urine WBC 55 H (0-5) /hpf Ur Squamous Epith Cells 2 (0-4) /hpf Urine Bacteria Rare H (None) /hpf 05/12/19 Range/Units 16:04 WBC (3.8-10.6) k/uL RBC (3.80-5.40) m/uL Hgb (11.4-16.0) gm/dL Hct (34.0-46.0) % MCV (80.0-100.0) fL MCH (25.0-35.0) pg MCHC (31.0-37.0) g/dL RDW (11.5-15.5) % Plt Count (150-450) k/uL Neutrophils % % Lymphocytes % % Monocytes % % Eosinophils % % Basophils % % Neutrophils # (1.3-7.7) k/uL Lymphocytes # (1.0-4.8) k/uL Monocytes # (0-1.0) k/uL Eosinophils # (0-0.7) k/uL Basophils # (0-0.2) k/uL PT (9.0-12.0) sec INR (<1.2) APTT (22.0-30.0) sec Sodium (137-145) mmol/L Potassium (3.5-5.1) mmol/L Chloride (98-107) mmol/L Carbon Dioxide (22-30) mmol/L Anion Gap mmol/L BUN (7-17) mg/dL Creatinine (0.52-1.04) mg/dL Est GFR (CKD-EPI)AfAm (>60 ml/min/1.73 sqM) Est GFR (CKD-EPI)NonAf (>60 ml/min/1.73 sqM) Glucose (74-99) mg/dL POC Glucose (mg/dL) 100 H (75-99) mg/dL POC Glu Aircraft Engine Mechanic Supervisor ID Leticia Vela Plasma Lactic Acid Gaurav (0.7-2.0) mmol/L Calcium (8.4-10.2) mg/dL Magnesium (1.6-2.3) mg/dL Total Bilirubin (0.2-1.3) mg/dL AST (14-36) U/L ALT (9-52) U/L Alkaline Phosphatase (38-126) U/L Troponin I (0.000-0.034) ng/mL Total Protein (6.3-8.2) g/dL Albumin (3.5-5.0) g/dL Urine Color Urine Appearance (Clear) Urine pH (5.0-8.0) Ur Specific Dixon (1.001-1.035) Urine Protein (Negative) Urine Glucose (UA) (Negative) Urine Ketones (Negative) Urine Blood (Negative) Urine Nitrite (Negative) Urine Bilirubin (Negative) Urine Urobilinogen (<2.0) mg/dL Ur Leukocyte Esterase (Negative) Urine RBC (0-5) /hpf Urine WBC (0-5) /hpf Ur Squamous Epith Cells (0-4) /hpf Urine Bacteria (None) /hpf Disposition Clinical Impression: UTI (urinary tract infection), Weak Disposition: HOME SELF-CARE Condition: Good Instructions (If sedation given, give patient instructions): Urinary Tract Infection in Women (ED) Prescriptions: Nitrofurantoin Monohyd/M-Cryst [Macrobid] 100 mg PO Q12HR #14 cap Is patient prescribed a controlled substance at d/c from ED?: No Referrals: Luis Angel Mcknight DO [Primary Care Provider] - 1-2 days Time of Disposition: 16:15
[2019-05-12 13:46] LABS: Basophils # (A) 0.1 k/uL (0-0.2); Basophils % (A) 2 %; Eosinophils # (A) 0.2 k/uL (0-0.7); Eosinophils % (A) 2 %; HCT 42.9 % (34.0-46.0); HGB 14.6 gm/dL (11.4-16.0); Lymphocytes # (A) 1.9 k/uL (1.0-4.8); Lymphocytes % (A) 22 %; MCH 30.9 pg (25.0-35.0); MCHC 33.9 g/dL (31.0-37.0); Mean Platelet Volume 6.7; Monocytes # (A) 0.3 k/uL (0-1.0); Monocytes % (A) 4 %; Neutrophils # (A) 5.7 k/uL (1.3-7.7); Neutrophils % (A) 69 %; Platelet Count 260 k/uL (150-450); RBC 4.72 m/uL (3.80-5.40); RDW 12.9 % (11.5-15.5); WBC 8.3 k/uL (3.8-10.6)
[2019-05-12 13:57] LABS: INR 0.9 (<1.2); Partial Thromboplastin Time 24.9 sec (22.0-30.0); Prothrombin Time 9.5 sec (9.0-12.0)
[2019-05-12 13:59] LABS: ALT 19 U/L (9-52); AST 25 U/L (14-36); African American GFR (CKD) >90 (>60 ml/min/1.73 sqM); Albumin 3.9 g/dL (3.5-5.0); Alkaline Phosphatase 82 U/L (38-126); Anion Gap 5 mmol/L; Blood Urea Nitrogen 14 mg/dL (7-17); Calcium 9.5 mg/dL (8.4-10.2); Carbon Dioxide 29 mmol/L (22-30); Chloride 106 mmol/L (98-107); Glucose 59 mg/dL (74-99); Magnesium 2.1 mg/dL (1.6-2.3); Potassium 4.1 mmol/L (3.5-5.1); Sodium 140 mmol/L (137-145); Total Bilirubin 0.4 mg/dL (0.2-1.3); Total Protein 7.1 g/dL (6.3-8.2)
--- NOTE | 2019-05-12 14:15 | XR ---
EXAMINATION TYPE: XR chest 2V DATE OF EXAM: 05/12/2019 COMPARISON: 12/17/2018 INDICATION: Weakness TECHNIQUE: Frontal and lateral views of the chest are obtained. FINDINGS: The heart size is mildly prominent. The pulmonary vasculature is normal. The lungs are clear. IMPRESSION: 1. Cardiomegaly
[2019-05-12 14:46] LABS: Appearance,Urine Clear (Clear); Bacteria,Urine Rare /hpf; Bilirubin,Urine Negative (Negative); Blood,Urine Negative (Negative); Color,Urine Light Yellow; Glucose,Urine (UA) Negative (Negative); Ketones,Urine Negative (Negative); Leukocyte Esterase,Urine Large (Negative); Nitrite,Urine Negative (Negative); Protein,Urine Negative (Negative); RBC,Urine 2 /hpf (0-5); Specific Gravity,Urine 1.009 (1.001-1.035); Squamous Epithelial Cell,Urine 2 /hpf (0-4); Urobilinogen,Urine <2.0 mg/dL (<2.0); WBC,Urine 55 /hpf (0-5)
[2019-05-12 15:09] VITALS: RESP 18
[2019-05-12] MEDS ORDERED: cefTRIAXone IN SWFI 1,000 MG/10 ML SYRINGE IVP STA ×2 (15:46→16:13)
[2019-05-12 16:06] LABS: Glucose,Whole Blood 100 mg/dL (75-99)
[2019-05-12 16:26] VITALS: BP 157/72; PULSE 57
[2019-05-12 16:36] VITALS: TEMP 98
== END 2019-05-12 16:43 | disposition home or self-care (01) ==
LOC: EC 12:55
DX: N39.0 Urinary tract infection, site not specified (principal); R53.1 Weakness; R20.2 Paresthesia of skin; I48.91 Unspecified atrial fibrillation; E11.9 Type 2 diabetes mellitus without complications; I10 Essential (primary) hypertension; H35.30 Unspecified macular degeneration; Z90.49 Acquired absence of other specified parts of digestive tract; Z79.4 Long term (current) use of insulin; Z79.01 Long term (current) use of anticoagulants; Z79.52 Long term (current) use of systemic steroids; Z79.899 Other long term (current) drug therapy; Z88.1 Allergy status to other antibiotic agents; Z88.8 Allergy status to other drugs, medicaments and biological substances; Z88.2 Allergy status to sulfonamides
CPT/HCPCS: 36415; 93005; 80053; 83605; 83735; 84484; 85025; 85610; 85730; 81001; 71046; 99285; 96374; 96361 ×2; J0696